=== PATIENT | male | born 1955 | race Caucasian/White ===

== ENCOUNTER 2018-06-03 16:09 | Inpatient (IN) | payer OTHER ==
[~2018-06-03] VITALS: Ht 175.3 cm; Wt 108.9 kg
--- NOTE | 2018-06-03 16:16 | NUR ---
PT SENT TO LOBBY TO WAIT FOR AVAILABLE BED. ALERT AND ORIENTED WITH NO DISTRESS NOTED
--- NOTE | 2018-06-03 18:05 | NUR ---
PT BROUGHT IN TO ED BY BROTHER WITH C/O INTERMITTENT ABDOMINAL PAIN X3 DAYS. AT BEDSIDE PT IS AAOX4, RESPS E/U, SKIN IS PINK, WARN AND DRY. PERRLA. ALSO, PT IS CALM AND COOPERATIVE. PT AMBULATED FROM LOBBY TO ROOM WITH STEADY GAIT AND NO ASSIST. PT PLACED ON MONITOR. PT ORIENTED TO ROOM, USE OF CALL SAINI AND BED IN LOWEST POSITION. BED RAIL IS UP X1 FOR SAFETY.
--- NOTE | 2018-06-03 19:20 | NUR ---
ULTRASOUND AT BEDSIDE
[2018-06-03 20:05] LABS: BASOPHIL % 0.4 % (0-2); PLATELET COUNT 248 x10^3mcL (130-400)
[2018-06-03 20:07] LABS: RED CELL DISTRIBUTION WIDTH 14.8 % (11.5-14.5)
--- NOTE | 2018-06-03 20:14 | NUR ---
PT EDUCATED ABOUT URINE SAMPLE NEEDED.
[2018-06-03 20:18] LABS: CALCIUM 9.2 mg/dL (8.5-10.1); CARBON DIOXIDE 26.2 mmol/L (21-32); CHLORIDE SERUM 104 mmol/L (98-107); CREATININE SERUM 1.1 mg/dL (0.7-1.3); GFR1 > 60 mL/min; GLUCOSE SERUM 93 mg/dL (74-106); POTASSIUM SERUM 4.2 mmol/L (3.5-5.1); SODIUM SERUM 141 mmol/L (136-145)
--- NOTE | 2018-06-03 20:22 | NUR ---
PT GIVEN WATER TO DRINK. VERIFED WITH MD DARBY FOR OK
[2018-06-03 20:23] LABS: ALBUMIN 4.1 g/dL (3.4-5.0); ALKALINE PHOSPHATASE 174 U/L (46-116); ALT/SGPT 425 U/L (16-63); AST/SGOT 243 U/L (15-37); BILIRUBIN TOTAL 2.2 mg/dL (0.20-1.00); LIPASE 126 IU/L (73-393); TOTAL PROTEIN, SERUM 7.7 g/dL (6.4-8.2)
--- NOTE | 2018-06-03 21:30 | NUR ---
PT SITTING IN UPRIGHT POSTION. EDUCATED ON HOW TO WORK TV. NO S/S OF DISTRESS. VITALS STABLE. FRINEDS AT BEDSIDE FOR COMFORT
[2018-06-03] MEDS ORDERED: ASPIR 8181 MG PO (22:15)
[2018-06-03] MEDS ORDERED: ESOMEPRAZOLE MA40 MG PO (22:15)
[2018-06-03] MEDS ORDERED: ZETIA10 M1 PO (22:15)
[2018-06-03] MEDS ORDERED: V5 PO (22:16)
[2018-06-03] MEDS ORDERED: PROVENTIL0.09 MG/A1 INH (22:16)
--- NOTE | 2018-06-03 23:36 | NUR ---
REPORT GIVEN TO SEN TO ASSUME CARE OF PT
--- NOTE | 2018-06-04 | NUR ---
RECEIVED PT FROM ED, CAME IN DUE TO ABDOMINAL PAIN. AAOX4. DENIES HEADACHE/DIZZINESS. NO SOB NOTED, LUNG SOUNDS CTA. DENIES CHEST PAIN/PRESSURE. DENIES ABDOMINAL DISCOMFORT. BOWEL SOUNDS ACTIVE. ABDOMEN IS SOFT AND ROUND. VOIDS FREELY. IV SITE PATENT AND INTACT. SIDE RAILS UPX2. CALL LIGHT ON REACH. PRIMARY NURSE SEN AT BEDSIDE FOR CONTINUITY OF CARE
[2018-06-04 00:07] VITALS: BP 140/83
[2018-06-04 00:12] VITALS: Ht 175.3 cm; Wt 108.9 kg
[2018-06-04 02:35] VITALS: BP 140/83
--- NOTE | 2018-06-04 05:59 | NUR ---
PT AWAKE AND RESTING IN BED, SLEPT ON AND OFF SINCE ADMITTED, DENIES ANY ABD PAIN OR N/V/D, IVF INFUSING WELL, NPO, NO DISTRESS NOTED, WILL KEEP TO MONITOR.
[2018-06-04 06:21] LABS: BASOPHIL % 0.6 % (0-2); PLATELET COUNT 244 x10^3mcL (130-400)
[2018-06-04 06:30] VITALS: BP 140/84
[2018-06-04 06:55] LABS: ALBUMIN 3.7 g/dL (3.4-5.0); ALKALINE PHOSPHATASE 156 U/L (46-116); ALT/SGPT 396 U/L (16-63); AST/SGOT 180 U/L (15-37); BILIRUBIN TOTAL 0.9 mg/dL (0.20-1.00); CALCIUM 8.8 mg/dL (8.5-10.1); CARBON DIOXIDE 24.8 mmol/L (21-32); CHLORIDE SERUM 104 mmol/L (98-107); CREATININE SERUM 1.1 mg/dL (0.7-1.3); GFR1 > 60 mL/min; GLUCOSE SERUM 104 mg/dL (74-106); POTASSIUM SERUM 3.7 mmol/L (3.5-5.1); SODIUM SERUM 141 mmol/L (136-145)
--- NOTE | 2018-06-04 07:08 | NUR ---
BEDSIDE HANDOFF REPORT DONE WITH BRIANA-RN, ALL QUESTIONS ANSWERED AND CONCERNS ADDRESSED.
--- NOTE | 2018-06-04 07:15 | NUR ---
RECIEVED PT FROM NIGHT NURSE. PT IS LAYING DOWN IN BED WITH HOB UP. RESPRIATIONS EVEN AND UNLABORED ON ROOM AIR. PT LOOKS TO BE IN NO ACUTE DISTRESS AT THIS TIME. IV SITE PATENT WITH NO SIGNS OF ERYTHEMA OR SWELLING WITH IV FLUIDS INFUSING. BED IN LOWEST POSITION. CALL LIGHT WITHIN REACH. WILL CONTINUE TO MONITOR.
--- NOTE | 2018-06-04 08:30 | NUR ---
PT STATING THAT ONE OF THE MEDICATION HE TAKES IN THE MORNING IS 1/2 A TABLET. LOOKED AT THE PT'S HOME MED LIST AND MO MEDICATIONS WERE HALF THE DOSE. PT WILL CALL FAMILY MEMBER TO CHECK WITH MEDICATION HE TAKES 1/2 AT HOME. PT ASKED TO HOLD MEDS AT THIS TIME UNTIL HE FINDS OUT WHICH ONE IS 1/2 TABLET.
[2018-06-04 08:52] VITALS: BP 127/88
--- NOTE | 2018-06-04 10:00 | NUR ---
PT COMPLAINING OF A VEGA 07/15 AT THIS TIME. WILL MEDICATE ACCORDING TO EMAR.
--- NOTE | 2018-06-04 10:50 | NUR ---
PT WAS TOLD BY FAMILY MEMBER AT HE TAKES ENALOPRIL AT HOME 5MG BUT HALF THE TABLET ONE TIME A DAY. WILL NOTIFY .
--- NOTE | 2018-06-04 15:15 | NUR ---
PT TAKEN DOWN FOR PROCEDURE
--- NOTE | 2018-06-04 18:43 | NUR ---
PT IS CURRENTLY IN SURGERY. WILL ENDORSE TO ONCOMING SHIFT.
[2018-06-04 18:54] LABS: CALCIUM 8.4 mg/dL (8.5-10.1); CARBON DIOXIDE 25.9 mmol/L (21-32); CREATININE SERUM 1.4 mg/dL (0.7-1.3); POTASSIUM SERUM 4.2 mmol/L (3.5-5.1)
[2018-06-04 18:59] LABS: ALBUMIN 3.6 g/dL (3.4-5.0); BILIRUBIN TOTAL 0.77 mg/dL (0.20-1.00); TOTAL PROTEIN, SERUM 6.9 g/dL (6.4-8.2)
--- NOTE | 2018-06-04 19:21 | NUR ---
RECEIVED REPORT FROM HUMBLE FROM PACU, WAITING FOR PT RETURN TO UNIT.
[2018-06-04 19:30] VITALS: BP 102/64
--- NOTE | 2018-06-04 19:30 | NUR ---
PT RECEIVED FROM KASSIDY KATE. VITALS ARE FOLLOWS: 97.5F TEMP, 102/64 BP MAP (76), 16 RR, 94 HR, 100% OXYGEN ON 2L NC. PT C/O 6/10 DULL ABD PAIN, "WORSE WHEN I COUGH". 4X ABDOMINAL INCISIONS NOTED, 3X NOTED WITH DERMABOND, CDI WITH NO DRAINAGE AT SITES. WILL CONTINUE TO MONITOR CLOSELY.
--- NOTE | 2018-06-04 19:52 | NUR ---
DR. BALDERAS CALLED AND UPDATED OF PT CBC RESULTS PER ORDER. NO NEW ORDERS RECEIVED.
--- NOTE | 2018-06-04 20:08 | NUR ---
PT MEDICATED PER EMAR FOR 6/10 DULL ABD PAIN.
--- NOTE | 2018-06-05 01:00 | NUR ---
PT RESTING IN BED WITH EYES CLOSED. RESPIRATIONS E/U. NO SIGNS OF PAIN NOTED. IVF INFUSING WELL. CALL LIGHT WITHIN REACH. WILL CONTINUE TO MONITOR.
--- NOTE | 2018-06-05 02:51 | NUR ---
PT C/O 09/14 ACHING ABDOMINAL PAIN. MEDICATED PER EMAR.
[2018-06-05 05:42] VITALS: BP 101/70
--- NOTE | 2018-06-05 05:48 | NUR ---
PT AMBULATED TO BATHROOM. GAIT SLOW BUT STEADY. PT ABLE TO URINATE.
--- NOTE | 2018-06-05 06:02 | NUR ---
PT HAD RESTFUL NIGHT. NO S/S ACUTE DISTRESS. CURRENTLY WATCHING TV IN BED. NO CHANGES OVERNIGHT. ALL NEEDS MET AND ATTENDED TO. CALL LIGHT WITHIN REACH. SAFETY MEASURES IN PLACE. REMINDED PT OF IMPORTANCE OF USING IS, PT VERBALIZED UNDERSTANDING AND SAYS HE HAS BEEN USING IT. WILL ENDORSE CARE TO ONCOMING SHIFT.
[2018-06-05 06:26] LABS: BASOPHIL % 0.2 % (0-2); PLATELET COUNT 236 x10^3mcL (130-400)
[2018-06-05 07:01] LABS: ALBUMIN 3.4 g/dL (3.4-5.0); BILIRUBIN TOTAL 0.5 mg/dL (0.20-1.00); CALCIUM 8.7 mg/dL (8.5-10.1); CARBON DIOXIDE 26.8 mmol/L (21-32); CREATININE SERUM 1.3 mg/dL (0.7-1.3); TOTAL PROTEIN, SERUM 6.9 g/dL (6.4-8.2)
--- NOTE | 2018-06-05 07:25 | NUR ---
RECEIVED PT IN BED. ASSESSED AND DOCUMENTED. DENIES PAIN THIS TIME. SAFTEY PRECAUTIONS ARE IN PLACE. WILL MONITOR.
[2018-06-05 07:26] LABS: RED CELL DISTRIBUTION WIDTH 14.9 % (11.5-14.5)
--- NOTE | 2018-06-05 10:00 | NUR ---
PT HAD CLEAR LIQUID DIET AND TOLERATED WELL, NO N/V.
[2018-06-05 10:15] VITALS: BP 95/58
--- NOTE | 2018-06-05 12:30 | NUR ---
PT C/O ABDOMINAL INCISION PAIN,07/15 AT 1130. MEDICATED PT WITH NORCO ORDERED AT 1130 AND REASSESSED NOW AND PT SAID HE DOESNOT FEEL ANY PAIN THIS TIME.
--- NOTE | 2018-06-05 14:00 | NUR ---
PT HAD FULL LIQUID DIET AND TOLERATED WELL. NO N/V. BURPING BUT STILL NOT PASSING GAS. ENCOURAGED PT TO AMBULATE. PT SAID HE AMBULATED IN THE HALLWAY ONCE.
--- NOTE | 2018-06-05 15:00 | NUR ---
PT AMBULATED IN THE HALLWAY. STABLE. DENIES ANY PAIN.
[2018-06-05 17:21] VITALS: BP 104/67
--- NOTE | 2018-06-05 19:06 | NUR ---
PT AMBULATING IN THE HALLWAY, STABLE. DENIES ANY PAIN. HAD CARDIAC DIET FOR DINNER. GAVE REPORT TO SUPERVISOR WOOD CREW NURSE. STABLE.
--- NOTE | 2018-06-05 19:25 | NUR ---
REPORT RECIEVED FROM DAY SHIFT RN. PATIENT WAS SEEN AND IS RESTING COMFORTABLY IN BED WITH BROTHER AT [facility]. BREATHING EVEN ON ROOM AIR. NO SOB OR RESP DISTRESS NOTED. DENIES CHEST PAIN. C/O 04/14 ABD PAIN, TOLERABLE AT THIS TIME. HAS BEEN BURPING AND AMBULATING AROUND THE [place]. ABD ROUND/ SOFT. 4 INCISIONS NOTED, DERMABOND ON X3. NO S/S OF INFECTION NOTED. IV TO THE RFA PATENT AND INTACT. NO REDNESS OR SWELLING NOTED. ABLE TO MAKE NEEDS KNOWN. ENCOURAGED PATIENT TO AMBULATE AND USE IS. COMFORT AND SAFETY MEASURES MAINTAINED. BED IS LOCKED AND IN THE LOWEST POSITION. SIDE RAILS UP X2. CALL LIGHT IS WITHIN REACH. WILL CONTINUE TO MONITOR.
[2018-06-05 21:37] VITALS: BP 127/88
--- NOTE | 2018-06-06 01:50 | NUR ---
PATIENT IS RESTING WITH EYES CLOSED IN BED. BREATHING EVEN. NO DISTRESS NOTED. NO S/S OF PAIN. ON ROOM AIR. CALL LIGHT IS WITHIN REACH. WILL CONTINUE TO MONITOR.
--- NOTE | 2018-06-06 05:31 | NUR ---
PATIENT SLEPT IN LONG INTERVALS THROUGHOUT THE NIGHT. NO ACUTE/SIGNIFICANT CHANGES NOTED. BREATHING EVEN ON ROOM AIR. ABD PAIN 3/10 AND MAINTAINED. DID NOT REQUEST PAIN MEDS THROUGHOUT THE NIGHT. PATIENT REPORTS HE HAS BEEN BURPING. IV TO THE RFA. PATENT AND INTACT. NO REDNESS OR SWELLING NOTED. ALL NEEDS AND CONCERNS ADDRESSED. COMFORT AND SAFETY MEASURES MAINTAINED. DENIES CHEST PAIN. CALL LIGHT IS WITHIN REACH. WILL ENDORSE CARE TO DAY SHIFT RN
[2018-06-06 05:50] VITALS: BP 132/86
[2018-06-06 06:15] LABS: BASOPHIL % 0.4 % (0-2); PLATELET COUNT 209 x10^3mcL (130-400)
[2018-06-06 06:38] LABS: ALBUMIN 3.5 g/dL (3.4-5.0); ALKALINE PHOSPHATASE 113 U/L (46-116); ALT/SGPT 358 U/L (16-63); AST/SGOT 114 U/L (15-37); BILIRUBIN TOTAL 0.6 mg/dL (0.20-1.00); CALCIUM 8.8 mg/dL (8.5-10.1); CARBON DIOXIDE 27.2 mmol/L (21-32); CHLORIDE SERUM 104 mmol/L (98-107); CREATININE SERUM 1.2 mg/dL (0.7-1.3); GFR1 > 60 mL/min; GLUCOSE SERUM 95 mg/dL (74-106); POTASSIUM SERUM 3.9 mmol/L (3.5-5.1); SODIUM SERUM 140 mmol/L (136-145); TOTAL PROTEIN, SERUM 7.2 g/dL (6.4-8.2)
--- NOTE | 2018-06-06 07:20 | NUR ---
RECEIVED PT FROM CHEMICAL ENGINEERING INTERN. RESTING IN BED COMFORTABLY. INCISION X4 TO ABD CLEAN AND DRY. DENIES PAIN THIS TIME. SAFTEY PRECAUTIONS ARE IN PLACE. WILL MONITOR.
[2018-06-06 07:57] LABS: RED CELL DISTRIBUTION WIDTH 15.1 % (11.5-14.5)
[2018-06-06 09:39] VITALS: BP 139/94
--- NOTE | 2018-06-06 10:30 | NUR ---
INFORMED ABOUT PT HAS NOT PASS GAS YET AND NO BM. ALSO AWARE. HE IS PUTTING ORDER.
--- NOTE | 2018-06-06 12:00 | NUR ---
CALLED SAID HE WILL DO COLONOSCOPY TOMORROW, REQUESTING TO GET CONSENT AND GAVE ME ORDER FOR MOVIPREP AND SENNA. INFORMED PT AND WILL GET CONSENT. PT IS STBLE. DENIES ANY PAIN.
--- NOTE | 2018-06-06 14:35 | NUR ---
PT C/O ABDOMINAL PAIN,09/14. MEDICATED PT WITH NORCO PO ORDERED AT 1335 AND REASSESSED NOW AND PT IS SLEEPING THIS TIME. STABLE.
--- NOTE | 2018-06-06 15:55 | NUR ---
MOVI PREP STARTED FOR COLONOSCOPY TOMORROW PER DR.SHAH GRESHAM.
--- NOTE | 2018-06-06 16:25 | NUR ---
PT C/O ABDOMINAL PAIN,10/15 AT 1555. MEDICATED PT WITH MORPHIN IV AND ALSO GIVEN SIMETHICONE PO FOR GAS. PT HAS ENCOURAGED FOR AMBULATION BUT HE SAID HE CANNOT WALK BECAUSE OF PAIN. REASSESSED PT AT 1625 AND HE SAID HE DOESNOT HAVE PAIN NOW AND HE PASS GAS AND HAD SMALL BM. ENCOURAGED AMBULATION. PT AMBULATING, BROTHER AT BEDSIDE. STABLE. NO DIZZINESS. WILL MONITOR.
--- NOTE | 2018-06-06 18:00 | NUR ---
PT SAID HE HAD 1 SMALL BM AND PASSING GAS. DENIES ABD PAIN THIS TIME.
[2018-06-06 18:08] VITALS: BP 146/99
--- NOTE | 2018-06-06 19:15 | NUR ---
PT RESTING IN BED COMFORTABLY, DENIES PAIN THIS TIME. GAVE REPORT TO FINANCIAL EXAMINER NURSE. PT IS STABLE.
[2018-06-06 20:44] VITALS: BP 123/82
--- NOTE | 2018-06-06 21:30 | NUR ---
Awake and verbally responsive. No respiratory distress noted on room air. Denies n/v. Abd'l. cramping due to bowel prep in progress. Having loose brown stools noted. Ambulatory. For colonoscopy in am. Will cont.to monitor. Call light within reach.
--- NOTE | 2018-06-07 04:05 | NUR ---
Afebrile. No significant change in condition noted. NPO for colonoscopy today. Denies pain.
[2018-06-07 05:43] VITALS: BP 130/84
[2018-06-07 07:12] VITALS: BP 131/97
--- NOTE | 2018-06-07 07:45 | NUR ---
REPORT RECEIVED AND PATIENT SEEN AWAKE [id number] CUNNINGHAM. DENIES ANY DISCOMFORT. NPO FOR COLONOSCOPY TODAY. CALL SAINI WITHIN REACH. BED LOW AND LOCKED.
--- NOTE | 2018-06-07 13:02 | NUR ---
RECIVED A CALL FROM MD FROST THAT COLONOSCOPY IS OK AND TO NOTIFY DR CONTRERAS THAT PATIENT CAN BE DISCHARGED. MD CONTRERAS HERE AND AWARE.
[2018-06-07 13:18] VITALS: BP 126/88
--- NOTE | 2018-06-07 13:19 | NUR ---
RECEIVED REPORT FROM KASSIDY HERNANDEZ S/P COLONOSCOPY. AWAITING PATIENT ON FLOOR.
[2018-06-07 13:25] VITALS: BP 129/84
--- NOTE | 2018-06-07 14:05 | NUR ---
BACK TO FLOOR AT 1310 S/P COLONOSCOPY. AWAKE AND ORIENTEDX4. STATED " ALL GOOD" VITALS 122/94 HR 96 98.5 RR 18 SAT 96%.
--- NOTE | 2018-06-07 14:57 | NUR ---
DISCHARGE TEACHINGS AND INSTRUCTIONS DONE. PHOTO OF SURGICAL ABD INCISIONS TAKEN. INSTRUCTED TO CALL MD FOR ANY SEVERE PAIN, NAUSEA, VOMITING, FEVER AND 911 FOR ANY CHEST PAINS OR SHORTNESS OF BREATH. BROTHER GIVING HIM A RIDE HOME. WHEELED OFF FLOOR BY ORA MCRAE.
== END 2018-06-07 15:09 | disposition home or self-care (01) | DRG 419 ==
LOC: ED 16:09 → MU 23:08
PROVIDERS: Emergency Medicine; Surgery; ADMIT Internal Medicine
PROC: BF11YZZ Fluoroscopy of Biliary and Pancreatic Ducts using Other Contrast (ICD-10-PCS; 2018-06-04)
PROC: 0FT44ZZ Resection of Gallbladder, Percutaneous Endoscopic Approach (ICD-10-PCS; principal; 2018-06-04 15:30)
PROC: 0DJD8ZZ Inspection of Lower Intestinal Tract, Via Natural or Artificial Opening Endoscopic (ICD-10-PCS; 2018-06-07)
DX: K80.00 Calculus of gallbladder with acute cholecystitis without obstruction (principal); E86.0 Dehydration; K59.04 Chronic idiopathic constipation; J44.9 Chronic obstructive pulmonary disease, unspecified; I10 Essential (primary) hypertension; E78.5 Hyperlipidemia, unspecified; Z68.34 Body mass index [BMI] 34.0-34.9, adult
CPT/HCPCS: 45378; 94150; J1170; J1200; J1610; J2175; J2250; J2270; J2310; J2405; J2543; J2704; J2710; J3010; J3490; J3535; J7030; J7120; Q0092; Q9967